=== PATIENT | female | born 1950 | race Caucasian/White ===

== ENCOUNTER 2019-03-29 10:07 | Outpatient (CLI) | payer MEDICARE, SELFPAY ==
--- NOTE | ~2019-03-29 | US_ITS ---
EXAMINATION: US right upper quadrant EXAM DATE: 03/29/2019 11:02 INDICATION: Abnormal liver enzymes. TECHNIQUE: Multiple grayscale and Doppler images of the abdomen right upper quadrant were obtained (b y a technologist who performed the scan) and subsequently reviewed. Comparison is made to prior exami nation from 07/25/2016. FINDINGS: The pancreatic head and body are normal in appearance. The pancreatic tail is not visualized. The l iver has normal echogenicity and contour. There are no focal liver lesions identified. There is no evidence of intrahepatic biliary duct dilation. Portal venous flow was seen in the hepatopedal, nor mal direction and has normal Doppler waveform. No right-sided hydronephrosis. Common bile duct measures 5 mm, which is normal. The gallbladder fossa is unremarkable. IMPRESSION: 1. Unremarkable abdominal ultrasound exam. Reviewed, dictated and finalized at location A. HYSICAL LABORATORY SUPERVISOR
== END 2019-03-29 10:08 | disposition home or self-care (01) ==
PROVIDERS: PCP Family Medicine
DX: K51.00 Ulcerative (chronic) pancolitis without complications (principal)
CPT/HCPCS: 76705

== ENCOUNTER 2019-04-19 10:16 | Emergency (ER) | payer MEDICARE, SELFPAY ==
--- NOTE | 2019-04-19 10:19 | ECG_ITS ---
Measurements Intervals [place] Rate: 73 P: 74 MN: 217 QRS: 5 QRSD: 84 T: 51 QT: 378 QTc: 417 Interpretive Statements SINUS RHYTHM WITH FIRST DEGREE AV BLOCK POSSIBLE LEFT ATRIAL ENLARGEMENT ABNORMAL ECG Electronically Signed On 04-19-2019 11:22:07 INDUCTION HEATING EQUIPMENT SETTER by Darell Ribeiro D.O.
--- NOTE | 2019-04-19 10:20 | PC.NURSE ---
Taken directly to room 1 from triage and EKG done--[facility] TECHNICIAN Hayes Lai with pt--advised needs to go to ED--pt agrees but refuses ambulance--will sign AMA due to this
[2019-04-19 10:21] VITALS: BP 142/73; PULSE 82; RESP 20; TEMP 36.4; O2SAT 100
--- NOTE | 2019-04-19 10:21 | ED.CHESTPAIN ---
HPI - Chest Pain General Chief Complaint: Chest Pain Stated Complaint: CHEST PAIN Time Seen by Provider: 04/19/19 10:19 Source: patient Mode of arrival: ambulatory Limitations: no limitations History of Present Illness HPI narrative: 68-year-old female presents to urgent care with complaints of intermittent left-sided chest pain since yesterday. Patient the pain is an ache and pressure sensation. Patient is a non-smoker. Patient denies family history of cardiac disorders. Patient denies cough, shortness of breath, diaphoresis, radiating pains, fever, body aches, chills, nausea or vomiting. MD complaint: chest pain Onset (ago): day(s) (1) Timing of current episode: episodic Pain radiation: none Severity: mild Pain scale (0-10): 2 Quality: aching Relieving factors: nothing Exacerbating factors: nothing Treatment prior to arrival: none Risk Factors Coronary artery disease risk factors: none Related Data On Oral Contraceptives: No Home Medications Medication Instructions Recorded Confirmed folic acid 1 mg tablet 1 mg PO DAILY 02/10/19 sulfasalazine 500 mg tablet 0.5 gm PO DAILY 02/10/19 Allergies Allergy/AdvReac Type Severity Reaction Status Date / Time sulfamethoxazole Allergy Severe RASH Verified 04/19/19 10:25 trimethoprim Allergy Severe RASH Verified 04/19/19 10:25 amoxicillin Allergy Unknown Vomiting Verified 04/19/19 10:25 fentanyl Allergy Unknown Nausea Verified 04/19/19 10:25 latex Allergy Unknown Rash Verified 04/19/19 10:25 sulfamethizole Allergy Unknown Rash Verified 04/19/19 10:25 Review of Systems Review of Systems: All systems reviewed & are unremarkable except as noted in HPI and below Constitutional: Constitutional: Denies chills, Denies fatigue, Denies fever(s) and Denies weakness ENT: Denies dysphagia, Denies vertigo, Denies epistaxis and Denies sore throat Cardiovascular: Cardiovascular: Reports chest pain, Denies rapid heart rate, Denies radiating jaw, neck or arm pain and Denies slow heart rate Respiratory: Respiratory: Denies chest congestion, Denies cough, Denies dyspnea and Denies wheezing Gastrointestinal: Gastrointestinal: Denies abdominal pain, Denies diarrhea, Denies nausea and Denies vomiting Neurologic: Denies vertigo, Denies dizziness, Denies syncope and Denies headache(s) [facility] Surgical History Surgical History H/O laparoscopy Family History Family History Father Diabetes mellitus Family history of elevated blood lipids Family history of genitourinary disease Patient's father is , Onset Age: 84 Mother Family history of blood dyscrasia Family history of glaucoma Hypertension Family history of cardiovascular disease Family history of arthritis Family history of lung disease Family history of congestive heart failure Family history of hearing loss Patient's mother is , Onset Age: 92 Family history of malignant neoplasm Family history of elevated blood lipids Sibling Family history of elevated blood lipids Grandparent Family history of cardiovascular disease Hypertension Acute myocardial infarction Cerebrovascular accident Family history of coronary artery disease Social History Social History Smoking status: Never smoker Alcohol intake: current Exam Const: General: healthy appearing, no acute distress and alert Orientation/consciousness: patient oriented x3 Neck: Neck: normal visual inspection Chest: Chest palpation & inspection: normal inspection of the chest Resp: Effort & Inspection: normal respiratory effort Auscultation: clear to auscultation bilaterally Cardio: Rate: regular rate, not bradycardic and not tachycardic Rhythm: regular rhythm Heart sounds: no murmurs Skin: General skin exam: normal color, no jaundice and no pallor Rashes:
[2019-04-19] MEDS: ASPIRIN 81 MG CHEWABLE TABLET 324 MG PO (10:24)
--- NOTE | 2019-04-19 10:40 | PC.NURSE ---
AMA form signed for refusing ambulance
== END 2019-04-19 10:25 | disposition left against medical advice (07) ==
PROVIDERS: Emergency Provider Nurse Practitioner Family; PCP Family Medicine
DX: R07.89 Other chest pain (principal); I44.0 Atrioventricular block, first degree
CPT/HCPCS: 93005; 99213; A9270; G0463

== ENCOUNTER 2019-04-19 10:40 | Emergency (ER) | payer MEDICARE, SELFPAY ==
[2019-04-19] VITALS (12 sets, daily range): BP systolic 125–142; BP diastolic 66–83; PULSE 64–74; RESP 12–33; TEMP 36.7; O2SAT 98–100
--- NOTE | ~2019-04-19 | XR_ITS ---
EXAMINATION: XR chest 2V EXAM DATE: 04/19/2019 11:29 INDICATION: Mid chest pain. TECHNIQUE: Frontal and lateral projections of the chest obtained and reviewed. Comparison is made to prior examination from 04/14/2013. FINDINGS: There is mild to moderate lower thoracic levoscoliosis. The lungs are clear. There are no pleural effusions. The cardiomediastinal silhouette is within normal limits. There is no pneumotho rax suspected. IMPRESSION: No acute cardiopulmonary findings. Reviewed, dictated and finalized at location B. T DESIGNER
--- NOTE | 2019-04-19 11:04 | ECG_ITS ---
Measurements Intervals [place] Rate: 78 P: 65 AK: 195 QRS: 6 QRSD: 85 T: 48 QT: 373 QTc: 426 Interpretive Statements SINUS RHYTHM BASELINE ARTIFACT- II, III, AVR, AVL, AVF, V1 NORMAL ECG Electronically Signed On 04-19-2019 14:30:01 UNIVERSAL BRANCH CONSULTANT by Darell Ribeiro D.O.
--- NOTE | 2019-04-19 11:07 | ED.CHESTPAIN ---
HPI - Chest Pain General Chief Complaint: Chest Pain Stated Complaint: chest pain from express care Time Seen by Provider: 04/19/19 10:53 Source: patient and RN notes reviewed Mode of arrival: ambulatory Limitations: no limitations History of Present Illness HPI narrative: A 68 y/o female presents to the ED from with dull, intermittent, pressure like lt CP beginning yesterday. She states that each episode of pain lasts several minutes . She denies anything aggravating or alleviating her pain. She also denies any rhinorrhea, sore throat, cough, N/V/D, SOB, or dizziness. MD complaint: chest pain Onset (ago): day(s) (yesterday) Timing of current episode: episodic Pain location: left chest Quality: dull and other (pressure) Relieving factors: nothing Exacerbating factors: nothing Related Data Home Medications Medication Instructions Recorded Confirmed folic acid 1 mg tablet 1 mg PO DAILY 02/10/19 04/19/19 sulfasalazine 500 mg tablet 0.5 gm PO DAILY 02/10/19 04/19/19 Allergies Allergy/AdvReac Type Severity Reaction Status Date / Time sulfamethoxazole Allergy Severe RASH Verified 04/19/19 10:49 trimethoprim Allergy Severe RASH Verified 04/19/19 10:49 amoxicillin Allergy Unknown Vomiting Verified 04/19/19 10:49 fentanyl Allergy Unknown Nausea Verified 04/19/19 10:49 latex Allergy Unknown Rash Verified 04/19/19 10:49 sulfamethizole Allergy Unknown Rash Verified 04/19/19 10:49 Review of Systems ENT: Denies nasal discharge and Denies sore throat Cardiovascular: Cardiovascular: Reports chest pain (lt) Respiratory: Respiratory: Denies cough and Denies dyspnea Gastrointestinal: Gastrointestinal: Denies diarrhea, Denies nausea and Denies vomiting Neurologic: Denies dizziness [facility] Past Medical History Medical History (Updated 04/19/19 @ 15:50 by Peter Martins MD) Cataracts, bilateral Chest pain Gastro-esophageal reflux disease without esophagitis History of liver disease Auto Immune. 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 complications Vitamin D deficiency, unspecified Surgical History Surgical History H/O laparoscopy Hx of rotator cuff surgery Family History Family History Father Diabetes mellitus Family history of elevated blood lipids Family history of genitourinary disease Patient's father is , Onset Age: 84 Mother Family history of blood dyscrasia Family history of glaucoma Hypertension Family history of cardiovascular disease Family history of arthritis Family history of lung disease Family history of congestive heart failure Family history of hearing loss Patient's mother is , Onset Age: 92 Family history of malignant neoplasm Family history of elevated blood lipids Sibling Family history of elevated blood lipids Grandparent Family history of cardiovascular disease Hypertension Acute myocardial infarction Cerebrovascular accident Family history of coronary artery disease Social History Social History Smoking status: Never smoker Alcohol intake: current Gender identity (if verbalized by the patient): Female Exam Narrative: Exam Narrative: GENERAL: Well-appearing, well-nourished, and in no acute distress. HEAD: Normocephalic, atraumatic. ENT: Mucous membranes moist. CHEST: Clear to auscultation. No respiratory distress. HEART: Regular rate and rhythm. No murmur heard. Normal peripheral pulses. ABDOMEN: Soft, nontender, nondistended. EXTREMITIES: Normal range of motion. No edema. SKIN: Warm, dry, no rash. NEURO: Alert and oriented x3. PSYCH: Normal mood and affect. Course Course Emergency Course: Troponin negative x2. Discharge home. Vital Signs Vital signs: Vital Signs Temperature 98.1 F 04/19/19 10:43 Pulse Rate
[2019-04-19 11:21] LABS: Basophils Absolute Auto 0.1 K/mm3 (0.0-0.1); Basophils Percent Auto 1.6 % (0.2-1.2); Eosinophils Absolute Auto 0.1 K/mm3 (0-0.3); Hematocrit 39.9 % (37.0-47.0); Hemoglobin 12.4 g/dL (12.0-15.0); Immature Granulocyte Absolute 0.02 K/mm3 (0.00-0.031); Immature Granulocyte Percent A 0.4 % (0-0.5); Lymphocytes Absolute Auto 2.03 K/mm3 (0.9-3.2); Lymphocytes Percent Auto 40.8 % (18.3-44.2); Mean Corpuscular HGB Conc 31.1 g/dl (32-36); Mean Corpuscular Hemoglobin 29.3 pg (26-34); Mean Corpuscular Volume 94.3 fl (80-100); Mean Platelet Volume 9.6 fl (7.4-10.4); Monocytes Absolute Auto 0.6 K/mm3 (0.1-0.6); Monocytes Percent Auto 11.8 % (2.6-8.5); Neutrophils Absolute Auto 2.2 K/mm3 (1.3-6.7); Neutrophils Percent Auto 43.4 % (45.5-73.1); Platelet Count Result 341 k/mm3 (150-375); Red Blood Count 4.23 M/mm3 (4.2-5.4); Red Cell Distribution Width 15.1 % (11.5-14.5)
[2019-04-19 11:32] LABS: INR 0.9; Partial Thromboplastin Time 24.4 SECONDS (22.3-36.8); Prothrombin Time 12.2 Seconds (11.1-14.7)
[2019-04-19 11:33] LABS: Alanine Aminotransferase 48 U/L (4-35); Alkaline Phosphatase 238 U/L (38-126); Aspartate Amino Transferase 57 U/L (14-36); Bilirubin,Total 0.3 mg/dL (0.2-1.3); Blood Urea Nitrogen 12 mg/dL (7-17); Calcium 9.2 mg/dL (8.4-10.2); Carbon Dioxide 29 mmol/L (22-30); Chloride 102 mmol/L (98-107); Estimated CRCL calculation 65 ml/min; Estimated Glomerular Filt Rate > 60; Glucose 97 mg/dL (65-105); Potassium 4.1 mmol/L (3.4-5.0); Sodium 141 mmol/L (137-145)
[2019-04-19 11:44] LABS: Troponin I < 0.012 ng/mL (0.000-0.034)
[2019-04-19 14:37] LABS: Troponin I < 0.012 ng/mL (0.000-0.034)
== END 2019-04-19 15:58 | disposition home or self-care (01) ==
PROVIDERS: Emergency Provider Emergency Medicine; PCP Family Medicine
DX: R07.89 Other chest pain (principal)
CPT/HCPCS: 36415; 71046; 80053; 84484; 85025; 85610; 85730; 93005; 99284; A9270

== ENCOUNTER 2020-01-25 14:34 | Outpatient (CLI) | payer MEDICARE, OTHER, SELFPAY ==
--- NOTE | ~2020-01-25 | MM_ITS ---
EXAMINATION: MM screening rajendra BI w antonio HISTORY: Screening mammogram TECHNIQUE: Craniocaudal and mediolateral oblique 3-D tomosynthesis images were obtained and synthetic 2-D images were generated. CAD analysis was submitted and interpreted. COMPARISON: 08/10/2018, 02/19/2017, 11/16/2015 bilateral digital screening mammogram examinations BREAST PARENCHYMAL COMPOSITION: There are scattered areas of fibroglandular density. FINDINGS: Scattered bilateral punctate benign calcifications. There is no evidence of suspicious mass , calcification, or architectural distortion to suggest malignancy in either breast. There has been n o suspicious interval change. IMPRESSION: 1. No mammographic evidence of malignancy. 2. Recommend routine screening mammography in one year. BI-RADS Category 2: Benign finding(s). Reviewed, dictated and finalized at location A. RAM SEWER
--- NOTE | ~2020-01-25 | DEXA_ITS ---
Bone Density Report Name: Latanya Arnett Age: 69 Sex: Female Ethnicity: White Date of : 1950 Indication: postmenopausal; inflammatory bowel disease; Referring Provider: Monica Alegria Study: Bone densitometry was performed. Exam Date: January 25, 2020 Accession number: [id number] Bone Density: Region BMD T-score Z-score Classification AP Spine (L1-L4) 0.929 -1.1 1.1 Osteopenia Femoral Neck (Left) 0.785 -0.6 1.2 Normal Total Hip (Left) 0.909 -0.3 1.2 Normal Total Hip Bilateral Avg 0.959 0.1 1.6 Normal Femoral Neck (Right) 0.843 -0.1 1.8 Normal Total Hip (Right) 1.009 0.5 2.1 Normal World Health Organization criteria for BMD impression classify patients as: Normal (T-score at or above -1.0), Osteopenia (T-score between -1.0 and -2.5), or Osteoporosis (T-score at or below -2.5). 10-year Fracture Risk(1): Major Osteoporotic Fracture 8.2% Hip Fracture 0.7% Reported Risk Factors: [place] (), Neck BMD=0.785, BMI=25.1 (1) FRAX(R) Version 3.08. Fracture probability calculated for an untreated patient. Fracture probability may be lower if the patient has received treatment. Previous Exams: Region Exam Age BMD T-score BMD Change BMD Change Date g/cm2 vs Baseline vs Previous AP Spine(L1-L4) 01/25/2020 69 0.929 -1.1 -0.167(-15.3%) -0.015(-1.6%) 08/24/2014 63 0.944 -0.9 -0.152(-13.9%) -0.014(-1.4%)# 02/03/2012 61 0.957 -0.8 -0.139(-12.7%) -0.091(-8.7%)# 06/13/2008 57 1.048 0.0 -0.048(-4.4%)* -0.011(-1.0%) 10/31/2004 54 1.059 0.1 -0.037(-3.4%)* -0.037(-3.4%)* 06/02/2001 50 1.096 0.4 Total Hip(Left) 01/25/2020 69 0.909 -0.3 -0.111(-10.9%) -0.017(-1.8%) 08/24/2014 63 0.926 -0.1 -0.095(-9.3%)# -0.021(-2.3%)# 02/03/2012 61 0.947 0.0 -0.073(-7.2%)# -0.056(-5.6%)# 06/13/2008 57 1.004 0.5 -0.017(-1.7%) -0.006(-0.6%) 10/31/2004 54 1.009 0.6 -0.011(-1.1%) -0.011(-1.1%) 06/02/2001 50 1.021 0.6 Total Hip(Right) 01/25/2020 69 1.009 0.5 -0.051(-4.8%)# 0.043(4.4%)* 08/24/2014 63 0.967 0.2 -0.093(-8.8%)# -0.011(-1.1%)# 02/03/2012 61 0.978 0.3 -0.082(-7.8%)# -0.029(-2.9%)# 06/13/2008 57 1.007 0.5 -0.053(-5.0%)* -0.070(-6.5%)* 10/31/2004 54 1.077 1.1 0.017(1.6%) 0.017(1.6%) 06/02/2001 50 1.060 1.0 *Denotes significance at 95% confidence level, LSC for AP Spine = 0.022 g/cm2, LSC for Total Hip = 0.027 g/cm2 Clinical Information Provided by Patient: Has the
== END 2020-01-25 14:35 | disposition home or self-care (01) ==
LOC: ANHIMG 14:37
PROVIDERS: PCP Family Medicine; Visit Provider Family Medicine
DX: Z12.31 Encounter for screening mammogram for malignant neoplasm of breast (principal); Z78.0 Asymptomatic menopausal state; M85.88 Other specified disorders of bone density and structure, other site
CPT/HCPCS: 77063; 77067; 77080

== ENCOUNTER 2020-03-13 08:08 | Outpatient (NON) | payer MEDICARE, OTHER, SELFPAY ==
[2020-03-13 18:38] LABS: SARS-CoV-2 RNA PCR Negative
== END 2020-03-13 08:09 ==
LOC: ANHCOVIDDT 08:10
PROVIDERS: PCP Family Medicine; Visit Provider Family Medicine
DX: R09.81 Nasal congestion (principal); Z20.822 Contact with and (suspected) exposure to COVID-19
CPT/HCPCS: C9803; U0003; U0005

== ENCOUNTER 2020-03-16 07:37 | Outpatient (CLI) | payer MEDICARE, OTHER, SELFPAY ==
--- NOTE | ~2020-03-16 | US_ITS ---
EXAMINATION: US abdomen limited EXAM DATE: 03/16/2020 08:09 INDICATION: Primary sclerosing cholangitis. TECHNIQUE: Multiple grayscale and Doppler images of the abdomen right upper quadrant were obtained (b y a technologist who performed the scan) and subsequently reviewed. Comparison is made to prior exami nation from 03/29/2019. FINDINGS: The pancreatic head and body are normal in appearance. The pancreatic tail is not visualized. The l iver has normal echogenicity and contour. There are no focal liver lesions identified. There is no evidence of intrahepatic biliary duct dilation. Portal venous flow was seen in the hepatopedal, nor mal direction and has normal Doppler waveform. No right-sided hydronephrosis. Common bile duct measures 5 mm, which is normal. The gallbladder fossa is unremarkable. IMPRESSION: Unremarkable abdominal ultrasound exam. Reviewed, dictated and finalized at location A. ORIAL ASSISTANT
== END 2020-03-16 07:38 | disposition home or self-care (01) ==
PROVIDERS: PCP Family Medicine
DX: K83.01 Primary sclerosing cholangitis (principal)
CPT/HCPCS: 76705

== ENCOUNTER 2020-03-27 17:56 | Outpatient (CLI) | payer MEDICARE, OTHER, SELFPAY ==
--- NOTE | ~2020-03-27 | XR_ITS ---
XR hip LT min 2V 03/27/2020 18:15 Indication: Left hip pain for 2-3 months Procedure: 3 views left hip Comparison: No prior studies for comparison. Findings: No fracture or traumatic malalignment. There is a corticated ossific density inferior to th e left hip, likely heterotopic ossification or old avulsion fracture visualized pelvic rings are inta ct.. Impression: 1: Corticated ossific density inferior to the left hip which may represent heterotopic ossification o r old avulsion fracture. 2: No acute bone or joint abnormality. Reviewed, dictated and finalized at location A. UP MACHINE OPERATOR Impression: 1: Corticated ossific density inferior to the left hip which may represent hete rotopic ossification or old avulsion fracture. 2: No acute bone or joint abnormality.
== END 2020-03-27 17:57 | disposition home or self-care (01) ==
PROVIDERS: PCP Family Medicine; Visit Provider Family Medicine
DX: M25.552 Pain in left hip (principal)
CPT/HCPCS: 73502

== ENCOUNTER 2020-04-09 12:46 | Outpatient (CLI) | payer MEDICARE, OTHER, SELFPAY ==
--- NOTE | ~2020-04-09 | XR_ITS ---
XR hip RT min 2V DATE: 04/09/2020 13:07 INDICATION: Right hip pain. TECHNIQUE: AP, lateral, crosstable lateral views of right hip COMPARISON: None FINDINGS: No fracture, dislocation, avascular necrosis or bone destruction of the right hip. Right hi p joint space is well preserved. The pubic symphysis and sacroiliac joints are intact. IMPRESSION: Negative right hip Reviewed, dictated and finalized at location B. GENCY NURSE IMPRESSION: Negative right hip
== END 2020-04-09 12:47 | disposition home or self-care (01) ==
PROVIDERS: PCP Family Medicine; Visit Provider Physician Assistant Medical
DX: M25.551 Pain in right hip (principal)
CPT/HCPCS: 73502

== ENCOUNTER 2021-06-03 08:05 | Outpatient (CLI) | payer MEDICARE, OTHER, SELFPAY ==
--- NOTE | ~2021-06-03 | MM_ITS ---
EXAMINATION: MM screening rajendra BI w antonio HISTORY: Screening mammogram TECHNIQUE: Craniocaudal and mediolateral oblique 3-D tomosynthesis images were obtained and synthetic 2-D images were generated. CAD analysis was submitted and interpreted. COMPARISON: 01/25/2020, 08/10/2018, 02/19/2017 bilateral screening mammogram examinations BREAST PARENCHYMAL COMPOSITION: There are scattered areas of fibroglandular density. FINDINGS: Scattered bilateral benign calcifications. There is no evidence of suspicious mass, calcifi cation, or architectural distortion to suggest malignancy in either breast. There has been no suspici ous interval change. IMPRESSION: 1. No mammographic evidence of malignancy. 2. Recommend routine screening mammography in one year. BI-RADS Category 2: Benign finding(s). Reviewed, dictated and finalized at location A.
== END 2021-06-03 08:06 | disposition home or self-care (01) ==
LOC: ANHIMG 08:06
PROVIDERS: PCP Family Medicine; Visit Provider Physician Assistant
DX: Z12.31 Encounter for screening mammogram for malignant neoplasm of breast (principal)
CPT/HCPCS: 77063; 77067

== ENCOUNTER 2021-12-02 08:32 | Outpatient (CLI) | payer MEDICARE, OTHER, SELFPAY ==
--- NOTE | ~2021-12-02 | US_ITS ---
EXAMINATION: US abdomen limited DATE: 12/02/2021 09:20 INDICATION: Primary sclerosing cholangitis. TECHNIQUE: Multiple grayscale and Doppler ultrasound images of the abdomen were obtained. COMPARISON: Ultrasound 03/16/2020 FINDINGS: The visualized portions of the head and body of the pancreas are normal. The liver is yuliana l without focal lesion. No liver surface nodularity. There is normal flow in main portal vein. The ga llbladder is absent. The common duct is normal and measures 4 mm. IMPRESSION: 1. Normal right upper quadrant ultrasound status post cholecystectomy. Reviewed, dictated and finalized at location A.
== END 2021-12-02 08:33 | disposition home or self-care (01) ==
PROVIDERS: PCP Family Medicine
DX: K83.01 Primary sclerosing cholangitis (principal)
CPT/HCPCS: 76705

== ENCOUNTER → 2022-04-10 12:26 | Outpatient (CLI) | payer MEDICARE, OTHER, SELFPAY ==
--- NOTE | ~2022-04-10 | XR_ITS ---
EXAMINATION: XR knee RT min 4V DATE: 04/10/2022 12:39 INDICATION: Right knee pain TECHNIQUE: Four views of the right knee were obtained. COMPARISON: None. FINDINGS: Alignment is normal. No fracture or osteochondral lesion. Joint spaces are normal with no e rosions. No joint effusion/synovitis. Soft tissues are unremarkable. IMPRESSION: 1. No acute osseous abnormality. Reviewed, dictated and finalized at location A. ICAL DOCUMENTATION MANAGER
== END ==
PROVIDERS: PCP Family Medicine; Visit Provider Family Medicine
DX: M25.561 Pain in right knee (principal)
CPT/HCPCS: 73564

== ENCOUNTER 2022-05-15 08:52 | Outpatient (CLI) | payer MEDICARE, SELFPAY ==
--- NOTE | ~2022-05-15 | US_ITS ---
Limited Abdominal Sonogram: Real-time sonographic imaging of the right upper quadrant was performed. Clinical History: Primary sclerosing cholangitis Findings: The liver appears normal with no evidence of mass lesion or bile duct dilatation. Main por veda vein demonstrates normal direction of flow. The gallbladder is absent, compatible prior cholecyst ectomy. The common bile duct measures 4 mm. The visualized pancreas, aorta, and IVC are unremarkable . Impression: Status post cholecystectomy, otherwise unremarkable exam. Reviewed, dictated and finalized at location . Impression: Status post cholecystectomy, otherwise unremarkable exam.
== END 2022-05-15 08:53 | disposition home or self-care (01) ==
PROVIDERS: PCP Family Medicine
DX: K83.01 Primary sclerosing cholangitis (principal)
CPT/HCPCS: 76705

== ENCOUNTER 2022-09-04 16:32 | Outpatient (CLI) | payer MEDICARE, SELFPAY ==
--- NOTE | ~2022-09-04 | DEXA_ITS ---
Bone Density Report Name: HADLEY JONES Age: 71 Sex: Female Ethnicity: White Date of : 1950 Indication: osteopenia; height loss; inflammatory bowel disease; postmenopausal Referring Provider: ANNELIESE PLUNKETT Study: Bone densitometry was performed. Exam Date: September 04, 2022 Accession number: [id number] Bone Density: Region BMD T-score Z-score Classification AP Spine(L1-L4) 0.941 -1.0 1.3 Normal Femoral Neck (Left) 0.783 -0.6 1.4 Normal Total Hip (Left) 0.892 -0.4 1.3 Normal Femoral Neck (Right) 0.822 -0.2 1.7 Normal Total Hip (Right) 0.932 -0.1 1.6 Normal Total Hip Mean 0.912 -0.3 1.5 Normal World Health Organization criteria for BMD impression classify patients as: Normal (T-score at or above -1.0), Osteopenia (T-score between -1.0 and -2.5), or Osteoporosis (T-score at or below -2.5). 10-year Fracture Risk: FRAX not reported because: All T-scores for Spine Total, Hip Total, Femoral Neck at or above -1.0 Previous Exams: Region Exam Age BMD T-score BMD Change BMD Change Date g/cm2 vs Baseline vs Previous AP Spine (L1-L4) 09/04/2022 71 0.941 -1.0 -0.017 (-1.7%) 0.012 (1.3%)# 01/25/2020 69 0.929 -1.1 -0.028 (-3.0%) -0.015 (-1.6%) 08/24/2014 63 0.944 -0.9 -0.014 (-1.4%) -0.014 (-1.4%) 02/03/2012 61 0.957 -0.8 Total Hip(Left) 09/04/2022 71 0.892 -0.4 -0.055 (-5.8%) -0.017 (-1.9%) 01/25/2020 69 0.909 -0.3 -0.038 (-4.0%) -0.017 (-1.8%) 08/24/2014 63 0.926 -0.1 -0.021 (-2.3%) -0.021 (-2.3%) 02/03/2012 61 0.947 0.0 Total Hip(Right) 09/04/2022 71 0.932 -0.1 -0.046 (-4.7%) -0.078 (-7.7%) 01/25/2020 69 1.009 0.5 0.031 (3.2%)# 0.043 (4.4%)* 08/24/2014 63 0.967 0.2 -0.011 (-1.1%) -0.011 (-1.1%) 02/03/2012 61 0.978 0.3 *Denotes significance at 95% confidence level, LSC for AP Spine = 0.022 g/cm2, LSC for Total Hip = 0.027 g/cm2 # Denotes dissimilar scan types or analysis methods Clinical Information Provided by Patient: Has used the following medications: Vitamin D, Calcium Has the following medical conditions: Inflammatory bowel diseases Patient maximum height was 64 Menopause Age: 46 Drinks caffeinated beverages Onset of menses at age 13 Number of children 3 Impression: The patient has normal bone mass. No significant bone loss was observed. Discussion: BONE DENSITY IS ABOVE THE MINIMUM DESIRABLE LEVEL AT ALL SKELETAL SITES TESTED. This patient?s bon
--- NOTE | ~2022-09-04 | MM_ITS ---
EXAMINATION: MM screening rajendra BI w antonio HISTORY: Screening mammogram TECHNIQUE: Craniocaudal and mediolateral oblique 3-D tomosynthesis images were obtained and synthetic 2-D images were generated. CAD analysis was submitted and interpreted. COMPARISON: June 03, 2021, January 25, 2020, August 10, 2018 bilateral screening mammogram examination s BREAST PARENCHYMAL COMPOSITION: There are scattered areas of fibroglandular density. FINDINGS: Scattered bilateral benign calcifications are again noted. There is no evidence of suspicio us mass, calcification, or architectural distortion to suggest malignancy in either breast. There has been no suspicious interval change. IMPRESSION: 1. No mammographic evidence of malignancy. 2. Recommend routine screening mammography in one year. BI-RADS Category 2: Benign finding(s). Reviewed, dictated and finalized at location A.
== END 2022-09-04 16:33 | disposition home or self-care (01) ==
LOC: ANHIMG 16:33
PROVIDERS: PCP Family Medicine; Visit Provider Family Medicine
DX: Z12.31 Encounter for screening mammogram for malignant neoplasm of breast (principal); Z78.0 Asymptomatic menopausal state; M85.80 Other specified disorders of bone density and structure, unspecified site
CPT/HCPCS: 77063; 77067; 77080

== ENCOUNTER → 2022-11-19 09:13 | Outpatient (CLI) | payer MEDICARE, SELFPAY ==
--- NOTE | ~2022-11-19 | US_ITS ---
US right upper quadrant INDICATION: Primary sclerosing cholangitis PROCEDURE: Realtime right upper abdominal ultrasound. COMPARISON: Ultrasound dated 05/15/2022 FINDINGS: The pancreas is normal without focal mass or pancreatic ductal dilation. Liver echotexture is normal without focal mass or intrahepatic biliary dilatation. There is normal directional flow i n the portal vein. Gallbladder is surgically absent. Common bile duct measures mm. No sonographic Hanks's sign. IMPRESSION: 1: Normal limited abdominal ultrasound. Reviewed, dictated and finalized at location B.
== END ==
PROVIDERS: PCP Family Medicine
DX: K83.01 Primary sclerosing cholangitis (principal)
CPT/HCPCS: 76705

== ENCOUNTER 2023-05-05 07:46 | Outpatient (CLI) | payer MEDICARE, SELFPAY ==
--- NOTE | ~2023-05-05 | US_ITS ---
EXAMINATION: US right upper quadrant DATE: 05/05/2023 08:13 INDICATION: Primary sclerosing cholangitis TECHNIQUE: Multiple grayscale and Doppler ultrasound images of the abdomen were obtained. COMPARISON: None FINDINGS: Visualized proximal to mid inferior vena cava and aorta are normal. The pancreatic head and body are normal in appearance. The pancreatic tail is not visualized. Liver has normal echogenicity and conto ur, with a smooth surface. No liver lesion identified. No intrahepatic biliary duct dilation suspecte d. Portal venous flow was seen in the hepatopetal, normal direction and has normal Doppler waveform. Right kidney demonstrates normal contour and echogenicity measuring 10.3 cm in length with no hydrone phrosis. Gallbladder is not visualized consistent with provided history of prior cholecystectomy. The common bile duct measures 3 mm diameter which is normal. IMPRESSION: 1. Status post cholecystectomy. Otherwise normal right upper quadrant ultrasound. Reviewed, dictated and finalized at location L. IMPRESSION: 1. Status post cholecystectomy. Otherwise normal right upper quadrant ultrasoun d.
== END 2023-05-05 07:47 ==
LOC: MICIMG 07:48
PROVIDERS: PCP Family Medicine
DX: K83.01 Primary sclerosing cholangitis (principal); Z90.49 Acquired absence of other specified parts of digestive tract
CPT/HCPCS: 76705

== ENCOUNTER 2023-11-17 07:33 | Outpatient (CLI) | payer MEDICARE, SELFPAY ==
--- NOTE | ~2023-11-17 | US_ITS ---
Renal-Bladder ultrasound Clinical History: Abdominal pain Technique: Real-time sonographic imaging of the kidneys and urinary bladder was performed. Findings: The right kidney measures 11.6 cm in length and the left kidney measures 11.3 cm. There is no hydronephrosis or renal calculus identified. Renal cortical echogenicity is within normal limits. No renal mass lesion is identified. The urinary bladder is moderately distended at the time of this exam. No intraluminal echoes are iden tified. No abnormal wall thickening is seen. Impression: Unremarkable ultrasound of the kidneys and urinary bladder. Reviewed, dictated and finalized at location M. Impression: Unremarkable ultrasound of the kidneys and urinary bladder.
--- NOTE | ~2023-11-17 | US_ITS ---
Ultrasound of the Abdominal Aorta INDICATION: Aortic aneurysm screening TECHNIQUE: Grayscale, color Doppler, and pulsed Doppler images of the aorta and common iliac arteries were obtained. COMPARISON: None. FINDINGS: Maximum vascular dimensions are as follows: Proximal aorta: 2.1 cm Mid aorta: 1.8 cm Distal aorta: 1.6 cm Right common iliac artery: 1.1 cm Left common iliac artery: 1.1 cm There is no evidence of abdominal aortic aneurysm. IMPRESSION: No evidence of abdominal aortic aneurysm. Reviewed, dictated and finalized at location M.
== END 2023-11-17 07:34 | disposition home or self-care (01) ==
PROVIDERS: PCP Family Medicine; Visit Provider Nurse Practitioner
DX: I71.9 Aortic aneurysm of unspecified site, without rupture (principal); R10.9 Unspecified abdominal pain
CPT/HCPCS: 76706; 76775

== ENCOUNTER 2024-01-22 10:18 | Outpatient (CLI) | payer MEDICARE, SELFPAY ==
--- NOTE | ~2024-01-22 | MM_ITS ---
EXAMINATION: MM screening rajendra BI w antonio HISTORY: Screening TECHNIQUE: Craniocaudal and mediolateral oblique 3-D tomosynthesis images were obtained and synthetic 2-D images were generated. CAD analysis was submitted and interpreted. COMPARISON: Comparison to multiple prior studies sequentially, with oldest reviewed study dated 11/15. BREAST PARENCHYMAL COMPOSITION: Not dense: There are scattered areas of fibroglandular density. FINDINGS: There is no evidence of suspicious mass, calcification, or architectural distortion to sugg est malignancy in either breast. There has been no suspicious interval change. IMPRESSION: 1. No mammographic evidence of malignancy. 2. Recommend routine screening mammography in one year. BI-RADS Category 1: Negative Reviewed, dictated and finalized at location [] [employer]
== END 2024-01-22 10:19 | disposition home or self-care (01) ==
LOC: MICIMG 10:19
PROVIDERS: PCP Nurse Practitioner; Visit Provider Nurse Practitioner
DX: Z12.31 Encounter for screening mammogram for malignant neoplasm of breast (principal)
CPT/HCPCS: 77063; 77067

== ENCOUNTER 2024-05-31 08:19 | Outpatient (CLI) | payer MEDICARE, SELFPAY ==
--- NOTE | ~2024-05-31 | US_ITS ---
Limited Abdominal Sonogram: Real-time sonographic imaging of the right upper quadrant was performed. Clinical History: Primary sclerosing cholangitis Findings: The liver appears normal with no evidence of mass lesion or bile duct dilatation. Main por veda vein demonstrates normal direction of flow. The gallbladder is absent, compatible prior cholecyst ectomy. The common bile duct measures 3 mm. The visualized pancreas, aorta, and IVC are unremarkable . Right kidney unremarkable, measuring 11.3 cm in length. Impression: Status post cholecystectomy, otherwise unremarkable exam. Reviewed, dictated and finalized at location M. Impression: Status post cholecystectomy, otherwise unremarkable exam.
== END 2024-05-31 08:20 | disposition home or self-care (01) ==
LOC: MICIMG 08:20
PROVIDERS: PCP Family Medicine
DX: K83.01 Primary sclerosing cholangitis (principal); Z90.49 Acquired absence of other specified parts of digestive tract
CPT/HCPCS: 76705

== ENCOUNTER 2024-11-15 13:32 | Outpatient (CLI) | payer MEDICARE, SELFPAY ==
--- NOTE | ~2024-11-15 | XR_ITS ---
EXAMINATION: XR shoulder RT min 2V, 11/15/2024 13:37 CDT HISTORY: Pain in right shoulder x 3 months, rotator cuff surg 2012 COMPARISON: No comparisons available. Findings: No acute fracture or malalignment. Moderate degenerative changes Soft tissues unremarkable. Impression: No acute fracture or malalignment. Reviewed, dictated and finalized at location A. Impression: No acute fracture or malalignment.
== END 2024-11-15 13:33 | disposition home or self-care (01) ==
PROVIDERS: PCP Family Medicine; Visit Provider Family Medicine
DX: M25.511 Pain in right shoulder (principal)
CPT/HCPCS: 73030

== ENCOUNTER 2025-01-23 13:27 | Outpatient (CLI) | payer MEDICARE, SELFPAY ==
--- NOTE | ~2025-01-23 | MM_ITS ---
EXAMINATION: MM screening rajendra BI w antonio HISTORY: Screening. TECHNIQUE: Craniocaudal and mediolateral oblique 3-D tomosynthesis images were obtained and synthetic 2-D images were generated. CAD analysis was submitted and interpreted. COMPARISON: 2023, 2022, and 2021 BREAST PARENCHYMAL COMPOSITION: Dense: The breasts are heterogeneously dense FINDINGS: No suspicious masses are seen. There are no suspicious calcifications. No unexplained architectural distortion is seen. There are no skin or nipple abnormalities identified. There is no adenopathy seen on the images submitted. IMPRESSION: No mammographic evidence to suggest malignancy is seen. The patient may return to screening mammography as per ACR guidelines. BI-RADS 1 - Negative. Reviewed, dictated and finalized at location B. [employer]
== END 2025-01-23 13:28 | disposition home or self-care (01) ==
LOC: MICIMG 13:28
PROVIDERS: PCP Nurse Practitioner; Visit Provider Family Medicine
DX: Z12.31 Encounter for screening mammogram for malignant neoplasm of breast (principal)
CPT/HCPCS: 77063; 77067